=== PATIENT | male | born 1945 | race Caucasian/White ===

== ENCOUNTER 2017-06-25 17:31 | Inpatient (IN) | payer OTHER ==
[~2017-06-25] VITALS: Ht 165.1 cm; Wt 51.0 kg
[2017-06-25 19:00] LABS: BASOPHIL % 0.1 % (0-2); PLATELET COUNT 321 x10^3mcL (130-400)
[2017-06-25 19:02] LABS: RED CELL DISTRIBUTION WIDTH 15.1 % (11.5-14.5)
[2017-06-25 19:10] LABS: CALCIUM 8.7 mg/dL (8.5-10.1); CARBON DIOXIDE 30.3 mmol/L (21-32); CHLORIDE SERUM 100 mmol/L (98-107); CREATININE SERUM 0.8 mg/dL (0.7-1.3); GLUCOSE SERUM 86 mg/dL (74-106); POTASSIUM SERUM 3.4 mmol/L (3.5-5.1); SODIUM SERUM 139 mmol/L (136-145)
[2017-06-25 19:14] LABS: ALKALINE PHOSPHATASE 116 U/L (46-116); ALT/SGPT 28 U/L (16-63); AST/SGOT 62 U/L (15-37); BILIRUBIN TOTAL 0.6 mg/dL (0.20-1.00)
[2017-06-25 19:15] LABS: ALBUMIN 2.6 g/dL (3.4-5.0)
[2017-06-25] MEDS ORDERED: ASPIR 8181 MG PO (20:09)
[2017-06-25] MEDS ORDERED: CILOSTAZOL100 M1 PO (20:10)
[2017-06-25] MEDS ORDERED: NATURE'S BLEND F1 MG PO (20:11)
[2017-06-25] MEDS ORDERED: NATURAL IRON65 MG PO (20:11)
[2017-06-25] MEDS ORDERED: LEVOTHYROXINE0.1 M2 PO (20:12)
[2017-06-25] MEDS ORDERED: MAGNESIUM OXID400 MG PO (20:12)
[2017-06-25] MEDS ORDERED: KROGER NIC21 MG/24 H TD (20:13)
[2017-06-25] MEDS ORDERED: OXYCODONE HYDRO10 M1 PO (20:15)
[2017-06-25] MEDS ORDERED: NEU300 PO (20:18)
[2017-06-25] MEDS ORDERED: MULTI-VITAMIN W1 TAB PO (20:19)
[2017-06-25] MEDS ORDERED: PHARMASSURE VI500 MG PO (20:20)
[2017-06-25] MEDS ORDERED: COLACE100 MG PO (20:21)
[2017-06-25] MEDS ORDERED: ALDACTONE25 MG PO (20:21)
[2017-06-25] MEDS ORDERED: LASIX40 MG PO (20:21)
[2017-06-25] MEDS ORDERED: GOLYTELY1 PDR PO (20:22)
[2017-06-25] MEDS ORDERED: ATIVAN0.5 M1 PO (20:23)
[2017-06-25 21:18] VITALS: BP 127/84
[2017-06-25 21:21] VITALS: Ht 165.1 cm; Wt 51.0 kg
[2017-06-25 22:52] LABS: MAGNESIUM 1.6 mg/dL (1.8-2.4); PHOSPHOROUS 3.4 mg/dL (2.5-4.9)
[2017-06-25 22:56] LABS: T3 TOTAL 0.6 ng/mL
[2017-06-25 23:01] LABS: FREE T4 1.61 ng/dL (0.76-1.46); FREE THYROXINE INDEX 3.5 ug/dL (1.4-4.5); T4(THYROXINE) 9.5 ug/dL (4.7-13.3)
[2017-06-26 05:48] LABS: BASOPHIL % 0.3 % (0-2); PLATELET COUNT 258 x10^3mcL (130-400)
[2017-06-26 05:58] VITALS: BP 136/64
[2017-06-26 06:06] LABS: CALCIUM 7.9 mg/dL (8.5-10.1); CARBON DIOXIDE 26.8 mmol/L (21-32); CHLORIDE SERUM 102 mmol/L (98-107); CREATININE SERUM 0.6 mg/dL (0.7-1.3); GLUCOSE SERUM 139 mg/dL (74-106); MAGNESIUM 2.2 mg/dL (1.8-2.4); POTASSIUM SERUM 3.5 mmol/L (3.5-5.1); SODIUM SERUM 138 mmol/L (136-145)
[2017-06-26 06:55] LABS: RED CELL DISTRIBUTION WIDTH 14.7 % (11.5-14.5)
[2017-06-26 09:05] VITALS: BP 132/74
[2017-06-26 13:23] VITALS: BP 130/62
[2017-06-26 16:27] VITALS: BP 116/50
[2017-06-26 20:47] VITALS: BP 112/59
[2017-06-27 06:00] VITALS: BP 92/41
[2017-06-27 06:28] LABS: PLATELET COUNT 260 x10^3mcL (130-400)
[2017-06-27 06:42] LABS: BASOPHIL % 0 % (0-2); CALCIUM 7.6 mg/dL (8.5-10.1); CARBON DIOXIDE 28.8 mmol/L (21-32); CHLORIDE SERUM 102 mmol/L (98-107); CREATININE SERUM 0.7 mg/dL (0.7-1.3); GLUCOSE SERUM 132 mg/dL (74-106); POTASSIUM SERUM 3.4 mmol/L (3.5-5.1); SODIUM SERUM 138 mmol/L (136-145)
[2017-06-27 08:00] VITALS: BP 130/68
[2017-06-27 12:47] VITALS: BP 160/52
[2017-06-27 17:14] VITALS: BP 104/52
[2017-06-28 05:26] VITALS: BP 116/65
[2017-06-28 05:56] LABS: BASOPHIL % 0.1 % (0-2); PLATELET COUNT 229 x10^3mcL (130-400)
[2017-06-28 06:28] LABS: CALCIUM 7.7 mg/dL (8.5-10.1); CHLORIDE SERUM 104 mmol/L (98-107); CREATININE SERUM 0.8 mg/dL (0.7-1.3); GLUCOSE SERUM 107 mg/dL (74-106); POTASSIUM SERUM 3.1 mmol/L (3.5-5.1); SODIUM SERUM 141 mmol/L (136-145)
[2017-06-28 06:38] LABS: RED CELL DISTRIBUTION WIDTH 15.2 % (11.5-14.5)
[2017-06-28] MEDS ORDERED: CLEOCIN HCL300 MG PO (07:34)
[2017-06-28] MEDS ORDERED: LEVOFLOXACIN500 M1 PO (07:34)
[2017-06-28] MEDS ORDERED: MEDDP PO (07:35)
[2017-06-28] MEDS ORDERED: LAC PO (07:35)
[2017-06-28 09:17] VITALS: BP 116/65
[2017-06-28 09:45] VITALS: BP 109/45
[2017-06-28 11:15] LABS: APPEARANCE FLUID CLEAR; COLOR FLUID YELLOW; RBC FLUID 19 /cumm; SOURCE FLUID PARACENTESIS; WBC FLUID 60 /cumm
[2017-06-28 11:16] LABS: LYMPHOCYTE FLUID 87 %; MONOCYTE FLUID 3 %
[2017-06-28 13:35] VITALS: BP 106/52
[2017-06-28 15:00] VITALS: BP 106/52
== END 2017-06-28 15:53 | disposition home or self-care (01) | DRG 177 ==
LOC: ED 17:31 → DU 19:54 → MU 19:54 → DU 20:47 → MU 06-28 10:03
PROVIDERS: Emergency Medicine; Family Medicine; Student in an Organized Health Care Education/Training Program
PROC: 0W9G3ZZ Drainage of Peritoneal Cavity, Percutaneous Approach (ICD-10-PCS; principal; 2017-06-27)
DX: J69.0 Pneumonitis due to inhalation of food and vomit (principal); E43 Unspecified severe protein-calorie malnutrition; J44.1 Chronic obstructive pulmonary disease with (acute) exacerbation; J80 Acute respiratory distress syndrome; F10.288 Alcohol dependence with other alcohol-induced disorder; Z68.1 Body mass index [BMI] 19.9 or less, adult; E86.0 Dehydration; K70.31 Alcoholic cirrhosis of liver with ascites; E83.42 Hypomagnesemia; E87.6 Hypokalemia; I10 Essential (primary) hypertension; E03.9 Hypothyroidism, unspecified; D63.8 Anemia in other chronic diseases classified elsewhere; F17.210 Nicotine dependence, cigarettes, uncomplicated; F41.1 Generalized anxiety disorder; F10.20 Alcohol dependence, uncomplicated; Z79.82 Long term (current) use of aspirin
CPT/HCPCS: 36600; 83880; 84439; 87804; 88344; 97110-GP; 97116-GP; 97530-GP; G0480; J1956; J2060; J2920; J2930; J3475; J3490; J7030; J7613; J7620; J7644; Q0092

== ENCOUNTER 2018-09-24 14:43 | Inpatient (IN) | payer OTHER, MEDICAID ==
[~2018-09-24] VITALS: Ht 165.1 cm; Wt 57.0 kg
[~2018-09-24 14:43] MED LIST: ALDACTONE25 MG PO; ASPIR 8181 MG PO; ATIVAN0.5 M1 PO; CILOSTAZOL100 M1 PO; CLEOCIN HCL300 MG PO; COLACE100 MG PO; GOLYTELY1 PDR PO; KROGER NIC21 MG/24 H TD; LAC PO; LASIX40 MG PO; LEVOFLOXACIN500 M1 PO; LEVOTHYROXINE0.1 M2 PO; MAGNESIUM OXID400 MG PO; MEDDP PO; MULTI-VITAMIN W1 TAB PO; NATURAL IRON65 MG PO; NATURE'S BLEND F1 MG PO; NEU300 PO; OXYCODONE HYDRO10 M1 PO; PHARMASSURE VI500 MG PO
[2018-09-24 14:52] VITALS: Ht 165.1 cm; Wt 57.0 kg
--- NOTE | 2018-09-24 15:38 | NUR ---
PT WENT AND RETUNRED FROM XRAY.
--- NOTE | 2018-09-24 16:02 | NUR ---
PT RETURNED FROM XRAY
[2018-09-24] MEDS ORDERED: GABAPENTIN100 M2 (16:08)
--- NOTE | 2018-09-24 16:16 | NUR ---
PT RESTING AT BEDSIDE IN NAD
[2018-09-24 16:51] LABS: BASOPHIL % 0.3 % (0-2)
--- NOTE | 2018-09-24 16:56 | NUR ---
REPORT OFF TO PAIGE VILLALOBOS
[2018-09-24 17:01] LABS: CALCIUM 8.9 mg/dL (8.5-10.1); CARBON DIOXIDE 23.4 mmol/L (21-32); CHLORIDE SERUM 98 mmol/L (98-107); CREATININE SERUM 0.9 mg/dL (0.7-1.3); GLUCOSE SERUM 108 mg/dL (74-106); PLATELET COUNT 117 x10^3mcL (130-400); POTASSIUM SERUM 3.5 mmol/L (3.5-5.1); RED CELL DISTRIBUTION WIDTH 14.9 % (11.5-14.5); SODIUM SERUM 134 mmol/L (136-145)
[2018-09-24 17:06] LABS: ALBUMIN 3.5 g/dL (3.4-5.0); ALKALINE PHOSPHATASE 93 U/L (46-116); ALT/SGPT 26 U/L (16-63); AST/SGOT 28 U/L (15-37); BILIRUBIN TOTAL 1.2 mg/dL (0.20-1.00); TOTAL PROTEIN, SERUM 7.2 g/dL (6.4-8.2)
[2018-09-24 17:27] VITALS: BP 157/66
[2018-09-24 17:27] LABS: CHOLESTEROL/HDL RATIO 2.1; MAGNESIUM 1.8 mg/dL (1.8-2.4); PHOSPHOROUS 2.6 mg/dL (2.5-4.9)
--- NOTE | 2018-09-24 17:29 | NUR ---
ASSUMED CARE OF PATIENT. REPORTING 8/10 PAIN. PRN NORCO PROVIDED.
[2018-09-24 17:32] LABS: FREE T4 0.79 ng/dL (0.76-1.46); FREE THYROXINE INDEX 1.9 ug/dL (1.4-4.5); T4(THYROXINE) 5.4 ug/dL (4.7-13.3)
--- NOTE | 2018-09-24 17:34 | NUR ---
RECIEVED PT FROM ER, PT ADMIT FOR DISTAL RIGHT FEMUR FX, PT IS A/O X4, VERBAL RESPONSIVE, ABLE TO TELL WHAT SHE NEEDS. LUNG SOUND CLEAR BILATERAL, NO COUGH, NO SOB, PT DENY ANY CHEST PAIN OR DISCOMFORT, BOWEL SOUND PRESENT ALL 4 QUADRANTS, NO DISTENTION, NO TENDER. PEDAL PULS PRESENT BOTH FEET, IMMOBILIZER AT RIGHT KNEE, PT C/O RIGHT LEG PAIN 8/10, PAIN MEDCIATION WAS GIVING BY PRIMARY NURSE WILFREDO.RN IV AT LEFT AC, NO LEAKING, NO INFILTRAITON. ALL ADLS ASSIST, ALL NEED MET, CALL LIGHT IN REACH, WILL CONTINUE TO MONITOR.
--- NOTE | 2018-09-24 17:45 | NUR ---
TELE PLACED ON PATIENT.
[2018-09-24 17:52] LABS: T3 TOTAL 0.97 ng/mL
--- NOTE | 2018-09-24 18:51 | NUR ---
PATIENT SEEN RESTING IN ROOM. COMPLAINING OF 7/10 LEG PAIN S/P PRN NORCO ADMINISTRATION, OTHERWISE STABLE. NO APPARENT SIGNS OF DISTRESS OR DISCOMFORT AT REST. WILL ENDORSE CARE TO ONCOMING RN.
--- NOTE | 2018-09-24 19:00 | NUR ---
RECEIVED PT IN BED RESTING.LUNG SOUND CTA.BREATHING EVEN AND UNLABORED.C/O HIP PAIN 01/24 WILL MEDICATE ORDERED.BRACE TO RIGHT FEMUR. IV SITE PATENT AND INTACT.BED IN LOWEST POSITION,CALL LIGHT WITHIN REACH. WILL CONTINUE TO MONITOR.
--- NOTE | 2018-09-24 19:38 | NUR ---
MEDICATED MORPHINE 2MG IV ORDERED. WILL CONTINUE TO MONITOR.
--- NOTE | 2018-09-24 22:47 | NUR ---
PT IS HAVING PAIN AGAIN 12/24. MEDICATED MORPHINE 2MG IV ORDERED. WILL CONTINUE TO MONITOR.
--- NOTE | 2018-09-25 02:19 | NUR ---
PT C/O PAIN 11/23. MEDICATED MORPHINE 2MG IV ORDERED. WILL CONTINUE TO MONITOR.
--- NOTE | 2018-09-25 05:04 | NUR ---
PT APPEARS TO BE SLEEPING .NO SOB NOTED.NO S/S OF PAIN. BED IN LOWEST POSITION,CALL LIGHT WITHIN REACH. WILL CONTINUE TO MONITOR.
[2018-09-25 05:23] VITALS: BP 107/56
[2018-09-25 07:01] LABS: CALCIUM 8.5 mg/dL (8.5-10.1); CARBON DIOXIDE 24.5 mmol/L (21-32); CHLORIDE SERUM 100 mmol/L (98-107); CREATININE SERUM 0.9 mg/dL (0.7-1.3); GLUCOSE SERUM 85 mg/dL (74-106); PHOSPHOROUS 4.2 mg/dL (2.5-4.9); POTASSIUM SERUM 4.2 mmol/L (3.5-5.1); SODIUM SERUM 135 mmol/L (136-145)
[2018-09-25 07:19] LABS: BASOPHIL % 0.7 % (0-2); PLATELET COUNT 101 x10^3mcL (130-400); RED CELL DISTRIBUTION WIDTH 14.9 % (11.5-14.5)
--- NOTE | 2018-09-25 07:20 | NUR ---
CARE ENDORSED TO DAY NURSE
--- NOTE | 2018-09-25 07:30 | NUR ---
ASSUMED CARE OF PATIENT. COMPLAINING OF 8/10 RIGHT LEG PAIN. PRN MORPHINE PROVIDED. ALERT AND ORIENTED X4. S1 S2 SOUNDS NOTED. PULSES PALPABLE BILATERALLY. NO EDEMA NOTED. LUNG SOUNDS CLEAR TO ROOM AIR, NO ADVENTITIOUS BREATH SOUNDS BILATERALLY. BOWEL SOUNDS ACTIVE IN ALL 4 QUADRANTS. VOIDING WITH URINAL. ON BED REST WITH KNEE IMMOBILIZER IN PLACE. SKIN CLEAN DRY INTACT. IV ON LAC PATENT. BED LOCKED AND IN LOWEST POSITION. CALL LIGHT WITHINR EACH. WILL CONTINUE TO MONITOR.
[2018-09-25 08:17] VITALS: BP 113/55
--- NOTE | 2018-09-25 08:41 | NUR ---
COMPLAINING OF 7/10 PAIN. PRN DAVIDCO PROVIDED.
--- NOTE | 2018-09-25 09:44 | NUR ---
PATIENT SEEN RESTING IN BED WITH UNLABORED RESPIRATIONS. COMPLAINING OF 4/10 BUT TOLERABLE. NO NEW ISSUES.
[2018-09-25 13:21] VITALS: BP 103/77
--- NOTE | 2018-09-25 14:09 | NUR ---
COMPLAINING OF 8/10 RIGHT LEG PAIN. PRN NORCO PROVIDED.
[2018-09-25 16:08] VITALS: BP 110/51; BP 145/78
[2018-09-25 16:46] LABS: UA SPECIFIC GRAVITY 1.025 (1.005-1.035); microscopic required? YES; urine erythrocyte 1+ (NEGATIVE)
--- NOTE | 2018-09-25 17:40 | NUR ---
PRN MORPHINE PROVIDED FOR 8/10 PAIN.
--- NOTE | 2018-09-25 18:31 | NUR ---
CIRO LEMA PROVIDED FOR 8 PAIN.
--- NOTE | 2018-09-25 18:45 | NUR ---
PATIENT SEEN RESTING IN ROOM WITH DAUGHTER AT BEDSIDE. COMPLAINING OF 5/10 PAIN BUT TOLERABLE. NO APPARENT SIGNS OF DISTRESS OR DISCOMFORT NOTED. WILL ENDORSE CARE TO ONCOMING RN.
--- NOTE | 2018-09-25 20:00 | NUR ---
SHIFT REASSESSMENT DONE.PATIENT ALERT AND ORIENTED.PATIENT WANTING HIS PAIN SHOT AND PAIN PILL HE TOLD ME WHEN IT IS TIME.BREATHING EASY.GEN WEAKNESS,R FEMUR FX.DR GAMEZ STILL HAS TO SEE HIM.HEPLOCK LAC.TELE 17 SR.SKIN INTACT.VOIDING PER URINAL.CALL LIGHT IN REACH.
[2018-09-25 20:54] VITALS: BP 107/84
--- NOTE | 2018-09-25 23:56 | NUR ---
GIVEN DECAFF COFFEE REQUESTED,SAYS IT WON'T MAKE HIM AWAKE.
--- NOTE | 2018-09-26 00:57 | NUR ---
PATIENT TO ROOM 258 A,FROM 248 A.ALL BELONGINGS WITH HIM.
--- NOTE | 2018-09-26 04:00 | NUR ---
CHECKED AT INTERVALS.CALL LIGHT IN REACH.
[2018-09-26 05:00] VITALS: BP 108/57
--- NOTE | 2018-09-26 05:59 | NUR ---
I AND O MEASURED.URINAL AT BEDSIDE.PATIENT HAD PAIN PILL/SHOT FOR THIS SHIFT.WANTED PAIN SHOT MORE BUT TELLING HIM GOT TO ALTERNATE IT.
[2018-09-26 07:39] LABS: CALCIUM 8.9 mg/dL (8.5-10.1); CARBON DIOXIDE 26.8 mmol/L (21-32); CHLORIDE SERUM 101 mmol/L (98-107); CREATININE SERUM 0.9 mg/dL (0.7-1.3); GLUCOSE SERUM 88 mg/dL (74-106); MAGNESIUM 1.9 mg/dL (1.8-2.4); PHOSPHOROUS 3.6 mg/dL (2.5-4.9); POTASSIUM SERUM 4.3 mmol/L (3.5-5.1); SODIUM SERUM 135 mmol/L (136-145)
--- NOTE | 2018-09-26 07:42 | NUR ---
PT RESTING DURING BEDSIDE SHIFT REPORT WITH HEALTH ASSESSMENT AND TREATMENT TEACHER NURSE. PT AWOKE PRIOR TO END OF REPORT, DENIED PAIN AT THIS TIME, WILL CONTINUE TO MONITOR.
[2018-09-26 08:48] LABS: BASOPHIL % 0.6 % (0-2); PLATELET COUNT 90 x10^3mcL (130-400); RED CELL DISTRIBUTION WIDTH 14.7 % (11.5-14.5)
--- NOTE | 2018-09-26 10:36 | NUR ---
PT TAKEN TO OR TO HAVE CAST APPLIED TO RIGHT LEG, IN NAD AT THIS TIME.
[2018-09-26 14:41] VITALS: BP 111/57
[2018-09-26 17:15] VITALS: BP 98/75
--- NOTE | 2018-09-26 19:40 | NUR ---
REPORT GIVEN TO ELECTRICAL DISCHARGE MACHINE OPERATOR NURSE AT THE BEDSIDE CARE ENDORSED
--- NOTE | 2018-09-26 20:00 | NUR ---
RECEIVED PT IN BED, A/O X4. RESP. EVEN AND UNLABORED. ON ROOM AIR, DENIES SOB. AFEBRILE AND VITAL SIGNS STABLE. SR ON THE MONITOR, DENIES CP. S/P RT FEMUR SURG. DRESSING WITH LONG CAST INTACT AND DRY. ABLE TO WIGGLE TOES. LEG ELEVATED ON PILLOW. HL TO LAC, INTACT AND PATENT. COMPLAINING OF RT LEG PAIN,STATES PAIN LEVEL AT 6/10. WILL MEDICATE ORDERED. CALL LIGHT WITHIN REACH. WILL CONTINUE TO MONITOR.
--- NOTE | 2018-09-26 20:17 | NUR ---
MEDICATE WITH MORPHINE SULFATE IV ORDERED. WILL CONTINUE TO MONITOR.
[2018-09-26 20:50] VITALS: BP 103/54
--- NOTE | 2018-09-26 21:41 | NUR ---
RESTING QUIETLY IN BED. STATES PAIN RELIEF. WILL CONTINUE TO MONITOR.
--- NOTE | 2018-09-27 00:58 | NUR ---
EYES CLOSED, APPEARS ASLEEP, EASILY AROUSABLE. RESP. EVEN AND UNLABORED. NO ACUTE DISTRESS NOTED. WILL CONTINUE TO MONITOR.
--- NOTE | 2018-09-27 02:53 | NUR ---
AWAKE AT THIS TIME, COMPLAINING OF PAIN TO RT FOOT, 09/23, MEDICATED WITH NORCO PO ORDERED. WILL CONTINUE TO MONITOR.
[2018-09-27 05:33] VITALS: BP 113/43
--- NOTE | 2018-09-27 06:01 | NUR ---
AFEBRILE AND VITAL SIGNS STABLE. RESP. EVEN AND UNLABORED. NO ACUTE DISTRESS NOTED.DUE MEDS GIVEN ORDERED, ANTELMO. WELL. CAST /DRESSING TO RT LEG, INTACT. LEG ELEVATED ON PILLOW. KEPT COMFORTABLE. WILL CONTINUE TO MONITOR.
[2018-09-27 07:30] LABS: BASOPHIL % 0.5 % (0-2)
--- NOTE | 2018-09-27 07:30 | NUR ---
SEEN IN BED AAOX4. NO RESP DISTRESS NOTED. BREATHING E/U ON ROOM AIR. ON TELE#17 NSR. RIGHT LONG LEG CAST INPLACED, KEPT RLE ELVATED ON PILLOWS. ENCOURAGED TO USE OVERHEAD BAR TOLERATED. PATIENT VERBALIZED UNDERSTANDING. S/L TO LFA INTACT AND PATENT. CALL LIGHT PLACED WITHIN EASY REACH. SIDERAILS UP X2.
[2018-09-27 07:43] LABS: PLATELET COUNT 100 x10^3mcL (130-400); RED CELL DISTRIBUTION WIDTH 14.9 % (11.5-14.5)
[2018-09-27 08:09] LABS: CALCIUM 8.9 mg/dL (8.5-10.1); CARBON DIOXIDE 28.2 mmol/L (21-32); CHLORIDE SERUM 102 mmol/L (98-107); GLUCOSE SERUM 95 mg/dL (74-106); POTASSIUM SERUM 4.3 mmol/L (3.5-5.1); SODIUM SERUM 137 mmol/L (136-145)
[2018-09-27 09:02] VITALS: BP 112/41
--- NOTE | 2018-09-27 10:35 | NUR ---
COMPLAINTS PAIN TO RIGHT LEG, MORPHINE 2MG IVP GIVEN. HAD LARGE FORMED BM VIA BEDPAN NOTED.
[2018-09-27 13:04] VITALS: BP 127/56
--- NOTE | 2018-09-27 15:32 | NUR ---
NORCO 1 TAB PO GIVEN FOR RIGHT LEG PAIN, WILL CONTINUE TO MONITOR.
[2018-09-27 17:44] VITALS: BP 102/57
--- NOTE | 2018-09-27 17:46 | NUR ---
NO ANY DISTRESS THROUGHOUT SHIFT. MORPHINE 2MG IV X1 AND NORCO PO X1 GIVEN THROUGHOUT SHIFT WITH GOOD RELIEF. STATED UP AND WALKED TO THE DOOR AREA WITH PT. ALL SCHEDULEDS MEDS GIVEN. S/L FLUSHED PATENT.
--- NOTE | 2018-09-27 19:55 | NUR ---
RECEIVED PT IN BED, RESTING. A/O X4. RESP. EVEN AND UNLABORED. NO ACUTE DISTRESS NOTED. SR ON THE MONITOR, DENIES CP OR PRESSURE. RLE WITH LONG CAST, INTACT. ABLE TO WIGGLE TOES. RLE ELEVATED ON PILLOWS. NO COMPLAINTS OF PAIN OR ANY DISCOMFORT AT THIS TIME.HL TO RFA, INTACT AND PATENT.CALL LIGHT WITHIN REACH. WILL CONTINUE TO MONITOR.
[2018-09-27 20:02] VITALS: BP 104/49
--- NOTE | 2018-09-28 01:36 | NUR ---
ASLEEP, EASILY AROUSABLE. RT LEG ELEVATED ON PILLOW, APPEARS COMFORTABLE. CALL LIGHT WITHIN REACH. WILL CONTINUE TO MONITOR.
--- NOTE | 2018-09-28 06:00 | NUR ---
AFEBRILE AND VITAL SIGNS STABLE. MEDICATED FOR RT LEG PAIN ORDERED WITH RELIEF. DUE MEDS GIVEN ORDERED. ANTELMO. WELL. RESP. EVEN AND UNLABORED. NO ACUTE DISTRESS NOTED. RT LEG WITH CAST, ELEVATED ON PILLOW. NO COMPLAINTS NOTED AT THIS TIME. VOIDING FREELY. HAD X1 LG BM. KEPT COMFORTABLE. WILL CONTINUE TO MONITOR.
[2018-09-28 06:03] VITALS: BP 130/69
[2018-09-28 06:37] LABS: CALCIUM 8.8 mg/dL (8.5-10.1); CARBON DIOXIDE 27.7 mmol/L (21-32); CHLORIDE SERUM 101 mmol/L (98-107); CREATININE SERUM 0.8 mg/dL (0.7-1.3); GLUCOSE SERUM 113 mg/dL (74-106); POTASSIUM SERUM 3.9 mmol/L (3.5-5.1); SODIUM SERUM 139 mmol/L (136-145)
[2018-09-28 06:38] LABS: BASOPHIL % 0.7 % (0-2)
[2018-09-28 06:43] LABS: PLATELET COUNT 97 x10^3mcL (130-400); RED CELL DISTRIBUTION WIDTH 14.9 % (11.5-14.5)
--- NOTE | 2018-09-28 08:12 | NUR ---
AAO TIMES 4. TELE # 17 SR. LUNGS CTA. NO SOB. O2 SAT ON RA 93%. BS'S ACTIVE TIMES 4. GOOD APPETITE. SL SITE CDI. PEDAL PULSE TO RIGHT FOOT STRONG, NO EDEMA AND HE IS ABLE TO WIGGLE HIS TOES. RLE CAST FROM UPPER THIGHT TO ABOVE ANKLE, CDI. COOPERATIVE. NO C/O PAIN.
[2018-09-28 09:12] VITALS: BP 126/64
[2018-09-28 13:20] VITALS: BP 131/62
[2018-09-28 17:36] VITALS: BP 125/60
--- NOTE | 2018-09-28 18:37 | NUR ---
AAO TIMES 4. TELE # 17 SR. NO C/O PAIN AT THIS TIME. COOPERATIVE. TOES TO RIGHT FOOT WARM AND MOVEABLE. SL TO LFA CDI. NO SOB.
--- NOTE | 2018-09-28 19:50 | NUR ---
REC'D PT FROM DAY NURSE. PT RESTING IN BED. AAOX4, SPEECH CLEAR, FOLLOWS COMMANDS. TELE 17. DENIES CP, DIZZINESS, OR PALPITATIONS. DENIES RESP DISTRESS OR SOB. BREATHING EVEN/UNLABORED ON RA. NO EDEMA NOTED. ABD SOFT/FLAT. DENIES ABD PAIN, TENDERNESS, OR N/V. VOIDING FREELY. S/P CLOSED REDUCATION OF R DISTAL FEMUR. CAST IN PLACE. PT C/O R KNEE PAIN /10, ACHING. BECOMES SHARP RADIATING TO R UPPER THIGH WITH MOVEMENT. WILL MEDICATE APPROPRIATELY. RLE ELEVATED WITH PILLOWS. ABLE TO MOVE TOES. TRAPEZE IN PLACE. IV TO LFA FLUSHED AND PATENT, SITE WNL. CALL LIGHT WITHIN REACH, BED AT LOWEST POSITION. WILL CONTINUE TO MONITOR.
[2018-09-28 21:46] VITALS: BP 107/45
--- NOTE | 2018-09-28 21:50 | NUR ---
SPO2 88-90% ON RA, PT DENIES SOB. RESPIRATIONS E/U. 2L NC APPLIED, SPO2 92%.
--- NOTE | 2018-09-29 00:36 | NUR ---
PT C/O RLE PAIN 11/23. STATES HE "JUST ROLLED OVER." NORCO GIVEN PER ORDER. WILL MONITOR FOR RELIEF.
--- NOTE | 2018-09-29 02:08 | NUR ---
PT RESTING IN BED WITH EYES CLOSED. NO SIGNS OF DISTRESS NOTED. BREATHING EVEN/UNLABORED ON 2L O2 VIA NC. RLE ELEVATED WITH PILLOWS. CALL LIGHT WITHIN REACH, BED AT LOWEST POSITION. WILL CONTINUE TO MONITOR.
[2018-09-29 05:21] VITALS: BP 104/51
--- NOTE | 2018-09-29 06:07 | NUR ---
PT RESTING IN BED WITH EYES CLOSED. AROUSES EASILY. NO SIGNS OF DISTRESS NOTED. BREATHING EVEN/UNLABORED ON 2L O2 VIA NC. C/O RLE PAIN 11/23, WILL GIVE NORCO ONE HR POST LIBRIUM. RLE CAST IN PLACE, CDI. ELEVATED WITH PILLOWS. NO SIGNIFICANT CHANGES DURING SHIFT. PT TO D/C TO [facility] TODAY. CALL LIGHT WITHIN REACH, BED AT LOWEST POSITION. WILL ENDORSE TO DAY NURSE.
--- NOTE | 2018-09-29 07:58 | NUR ---
AAO TIMES 4. TELE # 17 SR. LUNGS CTA. NO SOB. O2 SAT ON RA 94%. BS'S ACTIVE TIMES 4. KAUR, NWB TO RIGHT LEG. GETS PHYSICAL THERAPY SERVICES. FULL RIGHT LEG CAST FROM ABOVE ANKLE TO UPPER THIGH. PERIPHERAL PULSES PALPABLE. NO EDEMA. COOPERATIVE. TOES TO RIGHT FOOT WARM AND MOVEABLE.
[2018-09-29 09:14] VITALS: BP 101/47
[2018-09-29 12:16] VITALS: BP 124/56
--- NOTE | 2018-09-29 13:21 | NUR ---
REPORT GIVEN TO JEOVANNY RN AT 1320 AT [facility]. ETA OF [facility] TRANSPORT IS FOR 1330. [facility] PHONE NUMBER IS [phone].
--- NOTE | 2018-09-29 13:43 | NUR ---
DC'D THE SL ANGIO INTACT. GAVE DISCHARGE INSTRUCTIONS. [facility] FROM [place] ARE HERE TO TAKE HIM TO [facility].
--- NOTE | 2018-09-29 14:14 | NUR ---
PHYSICAL THERAPY DAILY NOTES CO-SIGN All documentation done by the Carbon Paste Mixer Operator for 09/29/18 has been reviewed. I agree with the documentation. Reviewed/Co-Signed by: Salud Sorto PT Documentation Done by:SHAAN ARRIAGA PTA FOR 09/28/18
--- NOTE | 2018-09-29 14:20 | NUR ---
PHYSICAL THERAPY DAILY NOTES CO-SIGN All documentation done by the Digital Asset Coordinator for 09/29/18 has been reviewed. I agree with the documentation. Reviewed/Co-Signed by: Salud Sorto PT Documentation Done by:SHAAN ARRIAGA PTA
== END 2018-09-29 13:43 | DRG 534 ==
LOC: ED 14:43 → MU 16:32 → DU 16:32 → MU 17:09 → DU 17:43
PROVIDERS: Emergency Medicine; Internal Medicine; Neuromusculoskeletal Medicine, Sports Medicine; ADMIT Family Medicine
PROC: 2W3 Placement, Anatomical Regions, Immobilization (ICD-10-PCS; principal; 2018-09-26 11:15)
DX: S72.454A Nondisplaced supracondylar fracture without intracondylar extension of lower end of right femur, initial encounter for closed fracture (principal); E02 Subclinical iodine-deficiency hypothyroidism; G62.9 Polyneuropathy, unspecified; I10 Essential (primary) hypertension; F17.210 Nicotine dependence, cigarettes, uncomplicated; F10.20 Alcohol dependence, uncomplicated; Y90.9 Presence of alcohol in blood, level not specified; W18.39XA Other fall on same level, initial encounter; Y93.89 Activity, other specified; Y92.89 Other specified places as the place of occurrence of the external cause
CPT/HCPCS: 84439; 97110-GP; 97116-GP; 97530-GP; G0480; J0690; J1170; J1885; J2270; J2405; J3490; Q0092